=== PATIENT | female | born 1985 | race Caucasian/White ===

== ENCOUNTER 2017-10-02 09:27 | Emergency (ER) | payer OTHER ==
[~2017-10-02] VITALS: Ht 162.6 cm; Wt 67.1 kg
[2017-10-02 09:31] VITALS: BP 127/77
--- NOTE | 2017-10-02 09:40 | NUR ---
PT AMBULATED TO ER BED 12
--- NOTE | 2017-10-02 09:45 | NUR ---
32Y/F C/O RIGHT PELVIC PAIN X 4 DAYS WITH VAG BLEEDING X2 [facility] [place]/DAY. PT STATES SHE SPOKE WITH DR.T CALDERÓN THIS AM; WAS TOLD TO COME TO ER. AAOX4 WITH EVEN AND STEADY GAIT; PATIENT STATES PAIN OF 9/10 AT THIS TIME; VSS; PATIENT POSITIONED FOR COMFORT; HOB ELEVATED; BEDRAILS UP X2; BED DOWN. ER MD MADE AWARE OF PT STATUS.
[2017-10-02] MEDS ORDERED: MORPHINE SULFATE 4 MG/ML SYR IM ONE (10:05)
--- NOTE | 2017-10-02 10:20 | NUR ---
ULTRA SOUND AT BEDSIDE
[2017-10-02 11:09] VITALS: BP 125/75
--- NOTE | 2017-10-02 11:09 | NUR ---
Patient discharged with v/s stable. Written and verbal after care instructions given and explained. Patient verbalized understanding. Ambulatory with steady gait. All questions addressed prior to discharge. Advised to follow up with PMD.
== END 2017-10-02 11:09 | disposition home or self-care (01) ==
LOC: MED 09:27
DX: R10.2 Pelvic and perineal pain (principal); Z88.0 Allergy status to penicillin; Z88.8 Allergy status to other drugs, medicaments and biological substances; Z88.1 Allergy status to other antibiotic agents
CPT/HCPCS: 76856; 81002; 81025; 96372; 99284; J2270; Q0092